=== PATIENT | female | born 1985 | race Caucasian/White ===

== ENCOUNTER → 2017-06-03 | Outpatient (CLI) | payer OTHER ==
[2017-06-03 12:23] LABS: BASO % 0.3 %; BASO ABS # 0.02 K/uL (0-0.2); COMPLETE YES; HEMATOCRIT 43.9 % (37-47); LYMPH % 32.7 %; LYMPH ABS # 2.28 K/uL (1.2-3.4); MEAN CELL VOLUME 84.4 fL (80-100); MEAN CORPUSCULAR HEMOGLOBIN 27.3 pg (25-34); MEAN CORPUSCULAR HGB CONC 32.3 g/dl (32-36); MEAN PLATELET VOLUME 10.2 fL (7.4-10.4); MONO % 7.9 %; NEUT % 54.1 %; PLATELET COUNT 326 K/uL (130-400); WHITE BLOOD COUNT 6.98 K/uL (4.8-10.8)
[2017-06-03 13:34] LABS: BLOOD UREA NITROGEN 10 mg/dl (7-18); BUN/CREATININE RATIO 15.1 (10-20); CALCIUM 9.4 mg/dl (8.5-10.1); CARBON DIOXIDE 29 mmol/L (21-32); CHLORIDE 104 mmol/L (98-107); CREATININE 0.66 mg/dl (0.60-1.20); GLUCOSE 84 mg/dl (70-99); POTASSIUM 3.8 mmol/L (3.5-5.1); SODIUM 138 mmol/L (136-145)
[2017-06-03 13:45] LABS: CHOLESTEROL 192 mg/dl (0-200); CHOLESTEROL/HDL RATIO 2.6; HDL CHOLESTEROL 73 mg/dl; LDL CHOLESTEROL CALCULATED 99 mg/dl; TRIGLYCERIDES 99 mg/dl (0-150); VERY LOW DENSITY LIPOPROT CALC 20 mg/dl
== END | disposition home or self-care (01) ==
LOC: C.LABPVFM 08:45
PROVIDERS: ATTEND Nurse Practitioner Family
DX: R53.83 Other fatigue (principal); R63.5 Abnormal weight gain

== ENCOUNTER → 2017-06-28 | Outpatient (CLI) | payer OTHER | END | disposition home or self-care (01) | LOC: C.PAPS 16:47 | PROVIDERS: ATTEND Obstetrics & Gynecology | DX: Z01.419 Encounter for gynecological examination (general) (routine) without abnormal findings (principal) ==

== ENCOUNTER 2020-07-26 08:52 | Inpatient (IN) ==
--- NOTE | 2020-07-26 09:10 | History & Physical Report ---
Date of Service July 26, 2020 Assessment & Plan (1) : Wanda Antonio is a 35 y/o who presents for possible labor. Hx of medically-induced at 7wks. Evaluation of labor Vitals reviewed. tachycardic. Labs reviewed. Some leukocytosis. Not anemic. - benign . normal USs and NSTs. - GBS negative, O positive, negative antibody screen - ~4 hours in (fluid loss w/ some meconium at 0600). Some contractions felt at home. - patient doesn't want epidural if possible plan: pitocin on standby. IV heplock. encourage ambulation. will reevaluate at around noon. Ice chips and slow sips ok. Advanced maternal age, 35 - normal genetic screening Asthma - Albuterol PRN, Singulair at home plan: will prescribe inhaler because last needed Albuterol at home this AM History of Present Illness Primary Care Provider: KG Welsh Wanda Antonio is a 35 y/o female currently at 40w4d WGA with an EDDIE 07/22/20 as determined by (LMP (certain)) who is here for labor evaluation. Her is complicated by advanced maternal age, overall course has been benign. She felt that she lost her mucus plug yesterday. Brownish pink vaginal discharge yesterday, noticed some green last night and today. She also felt fluid passage x 3 times this AM, no odor and felt different from urination. Went through 6 pads of discharge today. some pain that wraps the to back and mild contractions. possible fluid loss at 6am. and in the car before left house. The patient did not sleep well last night, from anticipation and mild cramping pain 3/10, mild. Also associated w/ pain that wraps around her back. Denies recent infection, UTI, or recent sexual intercourse. Early US suggested low- lying placenta, but position corrected per transvaginal US at 32 wks. Hx medical at [facility] ~6 yrs ago at 7 wks for unintended . She endorses some intermittent sharp R thigh pain for 2 days, none currently. No numb of groin area or incontinence. Also has had some mild L thigh some numbness, worsened during , none currently. mild contractions; + movement; + fluid loss; +? bloody show Had regular appointments with OB. History of asthma and seasonal allergies: albuterol inhaler as needed, last used today (730am). Also takes daily Singulair and Claritin. Denies Hx HTN or DM. covid negative on 07/08/20, 07/23/20.Went to [place] on 06/29/20 in [facility]. Denies sick contact. Denies covid symptoms. No other travel within 30 days. Quit smoking 6+ years ago. No etoh during . Last BM early this morning. Baby's name: Donnie. plans to breastfeed. Plans to have circumcision. Labs: (12/19/19) Blood type: O pos Antibody screen: negative WBC: 14.45H (today) Hb: 13.6 (today) Hct: 40.1 (today) Plt: 229 (today) Rubella: immune RPR: nonreactive Gonorrhea: not detected Chlamydia: not detected HIV: negative HbSAg: negative GBS: negative Glucose 1 Hour 50 gm Load 113 mg/dl 04/30/20 COVID: negative 07/08/20, 07/23/20 Other screens: -CF/SMA/cfDNA -Maternal Serum Alpha Fetoprotein 48.1 ng/mL 02/06/20 Allergies Allergy/AdvReac Type Severity Reaction Status Date / Time aspirin Allergy rash Verified 07/26/20 09:31 Home Medications Home Medications Medication Instructions Recorded Confirmed Type loratadine 10 mg capsule 10 mg PO DAILY cap 08/03/19 07/26/20 History montelukast 10 mg tablet 10 mg PO QPM #90 tab 08/04/19 07/26/20 Rx albuterol sulfate 90 mcg/actuation See Rx Instructions INH Q4H PRN 04/17/20 07/26/20 Rx aerosol inhaler #18 gm [id number] 1 tab PO DAILY 07/26/20 07/26/20 History [] Patient History Medical History (Updated 07/23/20 @ 14:19 by Carmina Kan MD, FACOG) H/O varicella Low lying placenta without hemorrhage, antepartum Surgical History History of tonsillectomy and adenoidectomy History of tooth extraction Family History Brother Non Hodgkin's lymphoma Father Thyroid cancer Diabetes Nephrolithiasis Depression Cancer Grandmother (Maternal) Breast cancer Grandmother (Paternal) Breast cancer Aunt Breast cancer paternal Mother Skin cancer Hypothyroidism Dyslipidemia Family/Other Heart disease maternal and paternal family Social History Smoking Status: Former smoker Smoking End Date: 6 years ago; Second Hand Exposure: No; Hx Alcohol Use: No Hx Substance Use: No Preferred Language: Central [place] Communication Ability: Effective Senior Outside Sales Representative Required: No Beliefs That Will Affect Care: None marital status: marital status details: Morris Antonio (33) [phone] Current Living Situation: Spouse Current Living Situation Comment: lives with spouse, no pets current occupational status: employed current occupation: server security administrator/[employer] Other Information That Helps Us Care for You: No Feels Safe at Home: Yes Safety Concerns: Feels Safe At This Time Dental Care, Regularly: No Seatbelt Use: always Review of Systems Denies fever, chills Denies shortness of breath, difficulty breathing, chest pain, palpitations Denies dysuria. Denies headache or changes in vision. Denies nausea/vomiting. Denies current numbness, tingling, weakness. See HPI. Physical Exam Physical Exam: General: Alert, oriented. No acute distress. Cardiac: Tachycardic rate and regular rhythm, no murmurs/rubs/gallops. Respiratory: Clear to auscultation bilaterally, no wheezes/rales/rhonchi. No increased work of breathing. No respiratory distress. Abdomen: Gravid; + FHTs; Position: vertex Pelvic: loose 1cm. 70% -2 station . slightly posterior. per Dr. Foster. amniotic fluid w/ specks of meconium. EFW 7-8. Per Dr. Foster. Lower Extremities: No lower extremity edema or swelling. No deep calf pain. Rod's negative bilaterally Results & Data ([facility]) Vital Signs (Past 12 Hours) Vital Signs Pulse BP 20 08:59 102 H 110/69 Monitoring External Monitor External FHT. baseline 130s. Accels. No decels. Moderate variability. Supervising Physician Co-Signing Physician Notes Resident Physician Supervision Note: I was present with Dr. Slade during the history and exam. I discussed the case with the resident and agree with the findings and plan as documented in the note. Any exceptions or clarifications are listed here: [None] Documented By: Stephanie Foster MD, FACOG Resident Activity Tracking Resident Involvement: Resident Care Provided Care Provided: OB Delivery
[2020-07-26] MEDS ORDERED: OXYTOCIN 30 UNITS/500 ML BAG IV PRN ×2 (09:50→09:53)
[2020-07-26] MEDS ORDERED: ALBUTEROL HFA INHALER 8.5 GM INH PRN (10:04)
[2020-07-26 10:16] LABS: Hematocrit (blood only) 40.1 % (37-47); Hemoglobin 13.6 g/dL (12.0-16.0); Mean Corpuscular Hemoglobin 28.2 pg (25-34); Mean Platelet Volume 11.1 fL (7.4-10.4); Platelet Count 229 K/uL (130-400); RDW Coefficient of Variation 13.8 % (11.5-14.5); RDW Standard Deviation 42.4 fL (36.4-46.3); Red Blood Count 4.83 M/uL (4.2-5.4); White Blood Count 14.45 K/uL (4.8-10.8)
[2020-07-26 10:23] LABS: Mean Corpuscular Hgb Conc 33.9 g/dL (32-36)
--- NOTE | 2020-07-26 12:45 | Labor Progress Brief Note ---
Date of Service July 26, 2020 Subjective Reason For Note: Routine Evaluation Assessment & Plan (1) Encounter for supervision in primigravida, antepartum: (2) PROM (premature rupture of membranes): 35yo 40w4d. PROM - Cervix unchanged, Starting pitocin Admission and Anticipated Discharge Date Admission Date: July 26, 2020 Physical Exam Genitourinary: OB Exam Abdomen: + vertex Manual OB Exam: + cervical dilation 1 cm, + cervical effacement 70%, + station high and + amniotic fluid meconium OB Exam Monitor Tracing: + external FHT monitor used, + category I and + normal FHT variability; no early decelerations present, no late decelerations present and no variable decelerations Results & Data ([facility]) Vital Signs (Past 12 Hours) Vital Signs Temp Pulse Resp BP 07/26/20 12:34 36.5 C 95 H 20 110/71 07/26/20 11:13 36.6 C 98 H 20 118/74 07/26/20 09:12 36.7 C 102 H 20 110/69 07/26/20 08:59 102 H 110/69 07/26/20 08:57 36.7 C 20 Coding Level of Care Code None Diagnoses Encounter for supervision in primigravida, antepartum Z34.00 PROM (premature rupture of membranes) O42.90
[2020-07-26] MEDS: LACTATED RINGER'S 1,000 ML IV PRN ×2 (12:52→20:26)
[2020-07-26] MEDS ORDERED: ePHEDrine sulfate 50 MG/ML AMP ONE (19:54)
[2020-07-26] MEDS ORDERED: fentaNYL 2MCG/ML ROPIV 1.25MG/ML 100 ML BAG EPI ONE (19:55)
[2020-07-26] MEDS ORDERED: fentaNYL citrate 100 MCG/2 ML VIAL ONE (19:55)
[2020-07-26] MEDS ORDERED: BUPIVACAINE 0.25% 30 ML VIAL ONE (19:55)
[2020-07-26] MEDS ORDERED: NALOXONE HCL 1 MG in SODIUM CHLORIDE 0.9% 1000ML 1,000 ML IV PRN (20:54)
[2020-07-26] MEDS ORDERED: NALOXONE HCL 0.4 MG/1 ML VIAL/CARP IV PRN (20:54)
[2020-07-26] MEDS ORDERED: fentaNYL 2MCG/ML ROPIV 1.25MG/ML 100 ML BAG EPI PRN (20:54)
[2020-07-26] MEDS ORDERED: ePHEDrine sulfate 50 MG/ML AMP IV PRN (20:54)
[2020-07-26] MEDS ORDERED: DiphenhydrAMINE HCL 50 MG/ML VIAL IV PRN (20:54)
--- NOTE | 2020-07-26 20:54 | Anesthesiology Consultation ---
Date of Service July 26, 2020 Assessment & Plan Chart Review Chart Review: Acceptable Risk for Labor Epidural Consults Requested none History Height/Weight Height: 5 ft 10 in Weight: 89.811 kg Allergies Allergy/AdvReac Type Severity Reaction Status Date / Time aspirin Allergy rash Verified 07/26/20 09:31 Medications Home Medications Medication Instructions Recorded Confirmed Last Taken loratadine 10 mg capsule 10 mg PO DAILY cap 08/03/19 07/26/20 07/26/20 01:00 montelukast 10 mg tablet 10 mg PO QPM #90 tab 08/04/19 07/26/20 07/26/20 01:00 albuterol sulfate 90 mcg/actuation See Rx Instructions INH Q4H PRN 04/17/2007/26/20 07:30 aerosol inhaler #18 gm [id number] 1 tab PO DAILY 07/26/20 07/26/20 07/26/20 01:00 [] Active Medications Generic Name Dose Route Start Last Admin Trade Name Freq PRN Reason Stop Dose Admin Lactated Ringer's 1,000 mls @ 125 mls/hr 07/26/20 09:50 07/26/20 20:26 Lr IV 07/28/20 09:49 999 mls/hr .Q8H PRN Administration L&D Protocol Protocol Oxytocin 30 units in 500 mls @ 20 mls/hr 07/26/20 09:53 07/26/20 19:17 Pitocin IV 07/28/20 09:52 1.2 units/hr .Q24H PRN 20 mls/hr Labor Induction/Augmentation Titration Protocol 1.2 UNITS/HR Past Medical History Medical History H/O varicella Low lying placenta without hemorrhage, antepartum Past Family History Family History Brother Non Hodgkin's lymphoma Father Thyroid cancer Diabetes Nephrolithiasis Depression Cancer Grandmother (Maternal) Breast cancer Grandmother (Paternal) Breast cancer Aunt Breast cancer paternal Mother Skin cancer Hypothyroidism Dyslipidemia Family/Other Heart disease maternal and paternal family Past Surgical History Surgical History History of tonsillectomy and adenoidectomy History of tooth extraction Social History Smoking Status: Former smoker tobacco type: cigarettes Smoking End Date: 6 years ago Hx Alcohol Use: No Alcohol type: wine Hx Substance Use: No substance use type: marijuana Last Used Substance Other:: 5 years Physical Exam Vital Signs Last Vital Signs Temp 37.0 C 07/26/20 19:15 Pulse 102 H 07/26/20 20:49 Resp 18 07/26/20 19:15 BP 110/61 07/26/20 20:49 Pulse Ox 99 07/26/20 20:49 Testing Laboratory Results 07/26/20 09:58
[2020-07-26] MEDS: MONTELUKAST SODIUM 10 MG TABLET PO SCH (21:21)
[2020-07-27] MEDS ORDERED: HYDROCORTISONE ACETATE 25 MG SUPP PR PRN (02:49)
[2020-07-27] MEDS ORDERED: DIPHTHERIA/TETANUS/PERTUSSIS 0.5 ML SYR/VIAL IM ONE (02:49)
[2020-07-27] MEDS ORDERED: SUPERCREAM 0.870% 15 GM JAR EXT PRN (02:49)
[2020-07-27] MEDS ORDERED: OXYTOCIN 30 UNITS/500 ML BAG IV PRN (02:49)
[2020-07-27] MEDS ORDERED: bisacodyL 10 MG SUPP PR PRN (02:49)
[2020-07-27] MEDS ORDERED: BENZOCAINE 20% AER SPR 82.5 GM CAN EXT PRN (02:49)
[2020-07-27] MEDS ORDERED: ACETAMINOPHEN 325 MG TAB PO PRN (02:49)
[2020-07-27] MEDS: LACTATED RINGER'S 1,000 ML IV PRN (02:52)
--- NOTE | 2020-07-27 04:27 | Delivery Summary ---
DATE OF OPERATION: 07/27/2020 PROCEDURE: Normal spontaneous vaginal delivery with first-degree perineal laceration repair. SURGEON: Antoine Pat MD PREOPERATIVE DIAGNOSES: 1. Single intrauterine at 40 weeks 5 days gestational age. 2. Premature rupture of membranes. 3. Advanced maternal age. 4. Asthma. POSTOPERATIVE DIAGNOSES: 1. Single intrauterine at 40 weeks 5 days gestational age. 2. Premature rupture of membranes. 3. Advanced maternal age. 4. Asthma. 5. Status post procedure. ESTIMATED BLOOD LOSS: 300 mL DRAINS: Straight cath for 200 mL of clear urine. COMPLICATIONS: None. FINDINGS: Viable male infant with weight pending, Apgars of 8 and 9 at 1 and 5 minutes respectively. DESCRIPTION OF PROCEDURE: The patient progressed to 10 cm dilated, 100% effaced, +2 station, pushed over intact perineum with epidural anesthesia and delivered a viable male infant, weight and Apgars as noted above. Head of the delivered in ISABEL position, rest to left transverse. A loose nuchal cord was noted, which was easily reduced. Body and shoulders quickly followed. was noted to be vigorous soon after delivery and a 1-minute delayed cord clamping was initiated. Cord was then double clamped and cut. Cord blood was then obtained. Attention was then turned to delivery of the placenta, which was delivered intact, 3-vessel cord, gentle cord traction. On inspection of the perineum, vagina, and cervix, there was noted to be a small first-degree perineal laceration, which was repaired with a continuous running locked stitch. Needle, sponge, and instrument counts were correct at the completion of the case. Both mother and were stable in the immediate post-delivery period. I attest to the content of the Intraoperative Record and any orders documented therein. Any exception s are noted below.
[2020-07-27] MEDS: DOCUSATE SODIUM 100 MG CAP PO SCH ×2 (08:15→21:04)
[2020-07-27] MEDS: PRENATAL VITAMIN 1 TAB PO SCH (08:15)
--- NOTE | 2020-07-27 08:21 | Anesthesia Procedure Note ---
Date of Service July 27, 2020 Anesthesia Post Epidural Note Vital Signs Vital Signs: Temp Pulse Resp BP Pulse Ox 36.8 C 68 18 106/98 96 07/27/20 06:20 07/27/20 06:20 07/27/20 06:20 07/27/20 06:20 07/27/20 02:44 Notes Mental Status: alert / awake / arousable and participated in evaluation Nausea / Vomiting: adequately controlled Pain: adequately controlled Airway Patency, RR, SpO2: stable & adequate BP & HR: stable & adequate Hydration State: stable & adequate Neuraxial Anesthesia: was administered and sensory block is resolving Anesthetic Complications: no major complications apparent Epidural: Removed without complications and With tip intact
[2020-07-27] MEDS: IBUPROFEN 600 MG TAB PO PRN ×3 (09:03→23:53)
[2020-07-27] MEDS: MONTELUKAST SODIUM 10 MG TABLET PO SCH (21:05)
[2020-07-28 06:27] LABS: Hematocrit (blood only) 36.7 % (37-47); Hemoglobin 12.1 g/dL (12.0-16.0)
[2020-07-28] MEDS: IBUPROFEN 600 MG TAB PO PRN (06:39)
[2020-07-28] MEDS: DOCUSATE SODIUM 100 MG CAP PO SCH (07:45)
[2020-07-28] MEDS: PRENATAL VITAMIN 1 TAB PO SCH (07:45)
--- NOTE | 2020-07-28 09:31 | Obstetrical Progress Note ---
Date of Service July 28, 2020 Assessment & Plan (1) Encounter for care and examination after delivery: satisfactory progress wishes to be discharged f/u 6 weeks Day #:: 1 Subjective Ambulation: ambulating normally Voiding: no voiding problems Diet Tolerance:: regular diet Lochia:: Small Feeding Type:: breast feeding Review of Systems All systems reviewed & are unremarkable except as noted in HPI & below Physical Exam Constitutional WD/WN, vitals as above Psychiatric A+Ox3, euthymic affect Genitourinary OB Exam Abdomen: + fundal height (at U) Fundus: + firm Results & [facility] ([facility]) Vital Signs (Past 12 Hours) Vital Signs Temp Pulse Resp BP 07/28/20 07:15 97.3 F L 69 16 100/63 07/28/20 00:37 97.3 F L 86 18 106/69
[2020-07-28] MEDS ORDERED: bisacodyL 5 MG TABEC PO SCH (20:00)
== END 2020-07-28 16:20 | disposition home or self-care (01) | DRG 807 ==
LOC: OPB 08:52 → 4S1 08:55 → 4S2 07-27 06:06